=== PATIENT | female | born 1995 | race Caucasian/White ===

== ENCOUNTER 2020-04-03 00:43 | Outpatient (CLI) | payer OTHER, SELFPAY ==
[2020-04-04 03:00] LABS: SARS-CoV-2 RNA PCR Negative
== END 2020-04-03 00:44 | disposition home or self-care (01) ==
LOC: ANHCOVIDDT 00:43
PROVIDERS: Visit Provider Surgery Plastic and Reconstructive Surgery
DX: Z01.812 Encounter for preprocedural laboratory examination (principal); Z20.828 Contact with and (suspected) exposure to other viral communicable diseases
CPT/HCPCS: 87635; C9803; U0003

== ENCOUNTER 2020-04-05 01:11 | Day surgery (SDC) | payer OTHER, SELFPAY ==
[2020-03-25 11:09] VITALS: BMI 27.6
[2020-04-05] VITALS (7 sets, daily range): BP systolic 88–119; BP diastolic 40–78; PULSE 51–81; RESP 12–20; TEMP 35.8–36.4; O2SAT 97–100; BMI 27.6
[2020-04-05 06:33] LABS: Urine Cotinine NEGATIVE
--- NOTE | 2020-04-05 06:49 | WPDANESEPPF ---
Anes - Initial Pre Proc Eval Procedure: Operation Date: 04/05/20 07:30 Proposed Procedures p Bilateral Breast Reduction - Miko Gaytan MD Date/Time: 04/05/20 06:49 Surgeon: Miko Gaytan MD Pre Op Diagnosis: macromastia Patient Data Age: 25 Gender: F Height: 5 ft 1 in Weight: 66.22 kg Allergies Allergy/AdvReac Type Severity Reaction Status Date / Time No Known Allergies Allergy Verified 04/05/20 06:22 Home Medications Medication Instructions Recorded Confirmed Type docusate sodium 100 mg capsule 100 mg PO DAILY PRN 03/20/20 03/25/20 History hydrocodone 5 mg-acetaminophen 325 1 tablet PO Q6H PRN 03/20/20 03/25/20 History mg tablet ondansetron HCl 4 mg tablet 4 mg PO Q8H 03/20/20 03/25/20 History multivitamin 1 tablet PO DAILY 03/25/20 04/05/20 History Laboratory Tests 04/05/20 06:19 Cotinine Negative Patient hx anesthesia problems: none and other (motion sickness) Family hx anesthesia problems: none PMFSH Past Medical History Medical History Anxiety Social History Social History Smoking status: Never smoker Alcohol intake: never Substance use: never Spiritual care concerns: No Anes - Eval Final PreProcedure Day of Procedure 04/05/20 06:49 Patient weight: overweight Heart: regular rate and rhythm Lungs: clear to auscultation Airway: Mallampati scale class 1 Neurological: alert and oriented Last oral intake: >/= 8 hours ASA classification: II Emergent: no Anesthetic plan: proceed Anesthesia type and monitoring: general LMA and standard monitoring Informed Consent: The patient's anesthetic plan and its attendant risks and benefits were discussed with the patient/family/POA. Questions were solicited and answers provided to the satisfaction of the patient/family/POA.
[2020-04-05] MEDS: LACTATED RINGERS 1,000 ML 30 ML IV CONT ×2 (07:06→09:57)
[2020-04-05] MEDS: SCOPOLAMINE 1.5 MG PATCH TRANSDERM (07:08)
--- NOTE | 2020-04-05 07:12 | WPDHPUPDATE1 ---
History and Physical Update Update Date/Time: 04/05/20 07:12 History and Physical has been reviewed, including an updated exam of the patient. There are NO changes in the patient's condition. Risks, benefits, and alternatives have been discussed and questions answered. Patient agrees to proceed with procedure.
--- NOTE | 2020-04-05 07:28 | SUR.PREOP ---
ASSISTED DR MUÑOZ IN MARKING PT
[2020-04-05] MEDS: ceFAZolin 2 GM/D5W 50 ML 2 GM/50 ML BAG IVPB (07:34)
--- NOTE | 2020-04-05 09:59 | PM.PROC ---
Procedure Note - Detailed Date of procedure: 04/05/20 Pre-op diagnosis: macromastia Asymmetry Post-op diagnosis: same Procedure performed: Bilateral reduction mammaplasty Description of procedure: She is here today for bilateral breast reduction. Previously and again today the risks, benefits, alternatives were discussed in extensive detail. I wanted her to be very realistic about the risks involved as well as expectations. We discussed aftercare and what to monitor for. She understands we can never guarantee final breast size and there will always be asymmetry. She has a significant asymmetry pre-op. I was very upfront and honest about the risks of sensation change and even nipple loss (). Made sure answered all of her questions to her satisfaction today and consent was obtained. She was marked in the preoperative holding area with their verification. The patient was taken to the operating room placed supine on the operating table. Anesthesia was provided by anesthesiology. She was prepped and draped in a standard sterile fashion. A surgical time-out was taken. Stab incisions were made and I tumessed with a tumescent solution. I marked out the nipple-areolar complex at 42 mm. I then de-epithelialized the pedicle. The pedicle was well left well more than 2 cm in thickness. I then removed the inferior portion of the breast as well as the central keel to get shape based on preoperative planning. At this point copiously irrigated with saline solution and verified a strict hemostasis. I reapproximated the pillars using a 2-0 PDS as well as along the IMF. I tailor tacked the breast into place with silvino. She was placed in a sitting position. I verified the nipple-areolar complex position based on preoperative markings, intraoperative measurements, and observation which were in full agreement. This nipple-areolar complex was marked at 42 mm in size. I then placed supine and de-epithelialized this. Nipple-areolar complex was inset with 3-0 Monocryl. I closed the vertical incision with 3-0 Monocryl in the IMF with 3-0 stratafix. Then everything was closed using a running subcuticular 4-0 Monocryl followed by Steri-Strips. A dressing was placed followed by surgical bra. Patient was awoke and taken to PACU without difficulty. All instrument sponge counts were correct at the end of the case. Anesthesia: GLMA Surgeon: Miko Gaytan MD Estimated blood loss (mL): 20 Drains: No Packing: No Pathology: yes Complications: No immediate complications Condition: stable Disposition: PACU Findings: Inverted T Superior Medial Pedicle Right: 115.2 grams Left: 425.5 grams
== END 2020-04-05 12:05 | disposition home or self-care (01) ==
PROVIDERS: Visit Provider Surgery Plastic and Reconstructive Surgery
PROC: 0HBV0ZZ Excision of Bilateral Breast, Open Approach (ICD-10-PCS; CPT 19318; principal; 2020-04-05 07:30)
DX: N62 Hypertrophy of breast (principal); N64.89 Other specified disorders of breast
CPT/HCPCS: 19318; 80307; 88305; A9270; J0171; J0690; J1170; J2250; J3010; J7120